=== PATIENT | male | born 1960 | race Caucasian/White ===

== ENCOUNTER 2019-07-27 06:56 | Day surgery (SDC) | payer BC, OTHER ==
[~2019-07-27 06:56] MED LIST: Bupivacaine 0.5% 30 ML SDV ONE; Lidocaine 1% 30 ML SDV ONE
[2019-07-27] MEDS ORDERED: Ondansetron 4 MG/2 ML SDV IV ONE (06:57)
[2019-07-27] MEDS ORDERED: Ketorolac 30 MG/ML SDV IVPUSH ONE (06:57)
[2019-07-27] MEDS ORDERED: Midazolam 1 MG/ML 2 ML SDV IV ONE (06:57)
[2019-07-27] MEDS ORDERED: fentaNYL 100 MCG/2 ML SDV IV ONE (06:57)
[2019-07-27] MEDS ORDERED: Glycopyrrolate 0.2 MG/ML 2 ML SDV IV ONE (06:57)
[2019-07-27] MEDS ORDERED: Bupivacaine 0.5% 30 ML SDV ONE ×2 (06:57→11:18)
[2019-07-27] MEDS ORDERED: Lidocaine 1% 30 ML SDV ONE ×2 (06:57→11:18)
[2019-07-27] MEDS ORDERED: Lactated Ringers 1,000 ML IV ONE (06:57)
[2019-07-27] MEDS ORDERED: Propofol 200 MG/20 ML SDV IV ONE (06:57)
[2019-07-27] MEDS ORDERED: Lactated Ringers 1,000 ML IV SCH (08:30)
[2019-07-27] MEDS ORDERED: Clindamycin Phosphate 600 MG in Sodium Chloride 0.9% 100 ML IV ONE ×2 (08:30→12:00)
[2019-07-27] MEDS ORDERED: Sodium Chloride 0.9% 10 ML Syringe FLUSH PRN ×2 (08:30)
[2019-07-27] MEDS ORDERED: Bupivacaine 0.5% 30 ML SDV INJECT ONE ×2 (12:13→13:45)
[2019-07-27] MEDS ORDERED: Lidocaine 1% 30 ML SDV INJECT ONE ×2 (12:13→13:45)
[2019-07-28 08:12] VITALS: BP 118/71; PULSE 68
--- NOTE | 2019-07-28 09:13 | PCM.OPNOTE ---
- General Post-Op/Procedure Note Date of Surgery/Procedure: 07/27/19 Operative Procedure(s): right ankle arthroscopy with bone spur debridement, right foot endoscopic plantar fasciotomy Pre Op Diagnosis: right ankle pain with bone spur, right foot plantar fasciitis Post-Op Diagnosis: christiano with right ankle joint arthritis Anesthesia Technique: General LMA Primary Surgeon: Divya Desai Anesthesia Provider: Viet Aguilar EBL in mLs: 5 Complications: none Condition: Good Free Text/Narrative:: Intake & Output 07/27/19 07/28/19 07/28/19 22:59 06:59 14:59 Intake Total 600 Balance 600
--- NOTE | 2019-07-28 10:38 | OR ---
DATE: 07/27/2019 PREOPERATIVE DIAGNOSES: 1. Right ankle pain with dorsal bone spur. 2. Right foot plantar fasciitis. POSTOPERATIVE DIAGNOSES: 1. Right ankle pain with dorsal bone spur. 2. Right foot plantar fasciitis with right ankle arthritis. PROCEDURES PERFORMED: 1. Right ankle arthroscopy with bone spur debridement. 2. Right foot endoscopic plantar fasciotomy. ANESTHESIA: General with preoperative local block of 10 mL 1:1 mixture of 1% lidocaine plain and 0.5% Marcaine plain. TOURNIQUET TIME: 84 minutes, pneumatic thigh tourniquet. ESTIMATED BLOOD LOSS: Minimal. SPECIMEN: None. COMPLICATIONS: None. INDICATIONS: Og is a 58-year-old male who presents with chronic right ankle and heel pain. I have done injections to both areas in the past. He states that the ankle injection did help for little bit, but the heel injection only helped for a couple of days. He also does stretching and physical therapy exercises with no relief. He does wear a good shoe with an insert at all times. He states that he did injure that right ankle back in high school, states that he broke the ankle at that time and just iced it until it got better. X-rays of the right foot reveals a bone spur at the dorsal aspect of the right ankle joint. There is a large posterior os trigonum at the ankle. No signs of fractures. The patient voiced good understanding of proposed procedure and possible complications and elects to have surgery at this time. DESCRIPTION OF PROCEDURE: The patient was taken to the operating room lying in supine position. After adequate anesthesia induction as described above, the right foot and ankle were prepped and draped in usual sterile fashion. A pneumatic thigh tourniquet was inflated to 250 mmHg. Attention was then directed to the right ankle dorsal aspect where the dorsal lateral cutaneous nerve was able to be palpated and marked out. A small stab incision was first made at the dorsal ankle joint just medial to the anterior tibial tendon course being careful to avoid the saphenous neurovascular bundle. A 2.7 ankle scope was inserted to the ankle joint at this time. 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 There was a large bone spurring at the dorsal aspect of the tibia and talus. The gutters appeared with chondromalacia as well. There was a significant amount of synovitis throughout the dorsal ankle and also into the medial and lateral gutters. No osteochondral defects were noted. Attention was directed to the lateral ankle where the ankle scope was used to transilluminate the skin to be careful to avoid that nerve. A small stab incision was made at the lateral ankle just lateral to the extensor tendons and a hemostat was used to enter the ankle joint. The debrider was placed into the joint and all the inflamed synovitis tissue was debrided from the ankle joint. The shaver was then used to debride the large bone spurring on the dorsal aspect of the ankle and I also was able to introduce a bone rasp into the ankle through the ankle scope and was able to visualize the bone spur and I did rasp it down this way as well. Fluoroscopy was used to verify adequate resection of the bone spur as well as direct visualization of it. The scope and debrider were then removed, and the area was irrigated. The ankle was sutured with 4-0 nylon. Attention was then directed to the medial heel where a small stab incision was made at the medial plantar aspect taking access to the plantar fascia band. The scope from the endoscopic plantar fascia set was placed into the heel all the way over to the lateral aspect and a small stab incision was made at that lateral aspects so the scope was completely through the bottom of the heel. The ankle scope was then used to visualize the plantar fascia band. A push blade was used to incise the medial aspect of the plantar fascia band until muscle was visualized underneath. I did palpate the area and the tightness of the plantar fascia band was resolved after the release of the ligament. The area was then irrigated with copious amounts of sterile saline. The skin was closed with 4-0 nylon. The patient tolerated the procedure well and was transported to Recovery with vascular status intact as noted by immediate hyperemia upon deflation of the thigh tourniquet. The area was dressed with Xeroform to the incision sites, fluffs, Webril, and an Jaden wrap. He was placed into a CAM boot. He was then discharged home once he met hospital discharge requirements. [facility] /[id number]
== END 2019-07-27 16:37 | disposition home or self-care (01) ==
LOC: DL.SDS 06:56
PROVIDERS: ATTEND Podiatrist
DX: M77.51 Other enthesopathy of right foot and ankle (principal); M72.2 Plantar fascial fibromatosis; M19.071 Primary osteoarthritis, right ankle and foot; K21.9 Gastro-esophageal reflux disease without esophagitis; G47.33 Obstructive sleep apnea (adult) (pediatric); E78.5 Hyperlipidemia, unspecified; Z79.899 Other long term (current) drug therapy; Z88.0 Allergy status to penicillin; Z88.8 Allergy status to other drugs, medicaments and biological substances
CPT/HCPCS: 29893; 29897; J1885; J2001; J2250; J2405; J2704; J3010; J3490; J7050; J7120

== ENCOUNTER 2021-01-07 05:29 | Day surgery (SDC) | payer OTHER ==
[~2021-01-07 05:29] MED LIST changes: -Bupivacaine 0.5% 30 ML SDV ONE; -Lidocaine 1% 30 ML SDV ONE; +Midazolam 1 MG/ML 2 ML SDV ONE; +fentaNYL 100 MCG/2 ML SDV ONE
[2021-01-07] MEDS ORDERED: Midazolam 1 MG/ML 2 ML SDV IV ONE ×3 (05:30→06:35)
[2021-01-07] MEDS ORDERED: fentaNYL 100 MCG/2 ML SDV IV ONE ×3 (05:30→06:34)
[2021-01-07] MEDS ORDERED: Sodium Chloride 0.9% 10 ML Syringe FLUSH PRN (06:00)
[2021-01-07] MEDS ORDERED: Dextrose 5%-0.45% NaCl 1,000 ML IV SCH (06:00)
--- NOTE | 2021-01-07 07:38 | OR ---
DATE: 01/07/2021 PROCEDURE: Esophagogastroduodenoscopy and multiple pinch biopsies. INSTRUMENT USED: GIF-HQ190 Olympus video panendoscope. PREMEDICATIONS: No oral or topical anesthesia used. Fentanyl 100 mcg intravenous, Versed 2 mg intravenous, nasal O2 cannula. The procedure was done under pulse oximetry, BP recording, and pvc monitor. INDICATION: The patient with persistent abdominal pain and bloating, unexplained and not responsive to medical measures. Esophagogastroduodenoscopy is performed for detection of any active erosive lesions, Spaulding esophagus and/or malignancy also under consideration, H pylori status to be determined, small bowel biopsies to be obtained for celiac disease if indicated, endoscopic hemostasis therapy if needed. DESCRIPTION OF PROCEDURE: The scope was passed with ease. Adequate visualization of the esophagus was made from proximal to distal areas. No upper esophageal lesions identified. No distal esophageal stricture. No uphill or downhill esophageal varices. No Marissa-Reddy tear. Grade B erosive changes were noted by [place] criteria. No esophageal polyp or tumor mass identified. Z-line was seen at around 39 cm distal to the oral verge. No proximal gastric varices noted. Gastric fundus examination by retroflexion showed no polypoid lesions. No gastric ulcer, malignant mass, or vascular ectasia identified. Duodenal bulb showed patchy erythema. Visualized second part of the duodenum is unremarkable. Multiple pinch biopsies, 4 in number, were taken from different areas of the second part of duodenum and tissues were also obtained from the bulb at 9 and 12 o'clock positions and sent for any histopathologic evidence of celiac disease. Multiple pinch biopsies were also obtained from the gastric antrum and proximal body and sent for pyloric test for H pylori and histopathology. No bleeding was noted from any of the visualized areas at the completion of examination. Photographs were taken of the duodenal bulb, gastric antrum, fundus, and distal esophagus. IMPRESSION: Grade D gastroesophageal reflux disease. The patient tolerated the procedure well. [facility] /[id number]
[2021-01-07 09:51] VITALS: BP 121/70; PULSE 59
== END 2021-01-07 09:26 | disposition home or self-care (01) ==
LOC: DL.ENDO 05:29
PROVIDERS: ATTEND Internal Medicine Gastroenterology
DX: K29.80 Duodenitis without bleeding (principal); K31.89 Other diseases of stomach and duodenum; K21.9 Gastro-esophageal reflux disease without esophagitis; E66.09 Other obesity due to excess calories; E78.5 Hyperlipidemia, unspecified; G47.30 Sleep apnea, unspecified; N52.9 Male erectile dysfunction, unspecified; I10 Essential (primary) hypertension; Z98.890 Other specified postprocedural states; Z88.0 Allergy status to penicillin; Z88.8 Allergy status to other drugs, medicaments and biological substances; Z68.38 Body mass index [BMI] 38.0-38.9, adult
CPT/HCPCS: 87077; J2250; J3010; J7042

== ENCOUNTER 2021-03-18 06:32 | Day surgery (SDC) | payer OTHER ==
[~2021-03-18 06:32] MED LIST changes: +Dextrose 5%-0.45% NaCl 1,000 ML IV SCH; +Sodium Chloride 0.9% 10 ML Syringe FLUSH PRN
[2021-03-18] MEDS ORDERED: fentaNYL 100 MCG/2 ML SDV IV ONE ×3 (06:33→07:44)
[2021-03-18] MEDS ORDERED: Midazolam 1 MG/ML 2 ML SDV IV ONE ×3 (06:33→07:45)
[2021-03-18 10:26] VITALS: BP 106/68; PULSE 43
--- NOTE | 2021-03-18 14:20 | OR ---
DATE: 03/18/2021 PROCEDURE: Esophagogastroduodenoscopy and multiple punch biopsies. INSTRUMENT USED: GIF-HQ190 Olympus video panendoscope. PREMEDICATIONS: No oral or topical anesthesia used. Fentanyl 100 mcg intravenous, Versed 2 mg intravenous, nasal O2 cannula. The procedure was done under pulse oximetry, BP recording, and computer numerical control programmer. INDICATION: The patient with previous esophageal ulcers, on PPI. Followup esophagogastroduodenoscopy is performed for detection of any persistent esophageal ulcers, for detection of Spaulding's esophagus and/or dysplasia as well as malignancy, endoscopic hemostasis therapy if needed. DESCRIPTION OF PROCEDURE: The scope was passed with ease. Adequate visualization of the esophagus was made from proximal to distal areas. No upper esophageal lesions identified. No distal esophageal stricture. No uphill or downhill esophageal varices. No Marissa-Reddy tear. No evidence of erosive esophagitis by [place] criteria. No esophageal polyp or tumor mass identified. Z-line was seen at around 39 cm distal to the oral verge. No proximal gastric varices noted. Gastric fundus examination by retroflexion showed no polypoid lesions. No gastric ulcer, malignant mass, or vascular ectasia identified. Duodenal bulb showed no ulcer. Visualized second part of duodenum was unremarkable. No bleeding was noted from any of the visualized areas at the completion of the examination. Photographs were taken of the duodenal bulb, gastric antrum, fundus, and distal esophagus. IMPRESSION: Normal study. The patient tolerated the procedure well. [facility] /[id number]
== END 2021-03-18 09:56 | disposition home or self-care (01) ==
LOC: DL.ENDO 06:32
PROVIDERS: ATTEND Internal Medicine Gastroenterology
DX: K22.10 Ulcer of esophagus without bleeding (principal); K21.9 Gastro-esophageal reflux disease without esophagitis; E66.09 Other obesity due to excess calories; I10 Essential (primary) hypertension; N28.1 Cyst of kidney, acquired; Z86.010 Personal history of colon polyps
CPT/HCPCS: 43235; J2250; J3010; J7042

== ENCOUNTER 2021-05-12 05:50 | Day surgery (SDC) | payer OTHER ==
[2021-05-12] MEDS ORDERED: Midazolam 1 MG/ML 2 ML SDV IV ONE ×7 (05:51→07:12)
[2021-05-12] MEDS ORDERED: fentaNYL 100 MCG/2 ML SDV IV ONE ×3 (05:51→07:05)
--- NOTE | 2021-05-12 08:08 | OR ---
DATE: 05/12/2021 PROCEDURE: Total colonoscopy. INSTRUMENT USED: PCF-H190DL Olympus video colonoscope. PREMEDICATIONS: Fentanyl 100 mcg intravenous, Versed 4 mg intravenous. Nasal O2 cannula. Procedure was done under pulse oximetry, BP recording, and potline monitor. INDICATION: The patient with previous colonic tubular adenoma. Surveillance colonoscopic examination is done for detection of any polypoid lesions and removal, endoscopic hemostasis therapy if needed. DESCRIPTION OF PROCEDURE: Initial rectal exam was unremarkable. Rigid anoscopy was normal. The colonoscope was passed with ease. Few diverticula in the distal left colon. The scope was passed with ease up to the ileocecal area. Photographs were taken of the normal-appearing cecum, identified by landmarks of appendiceal orifice and double-bulged ileocecal folds. No bleeding was noted from any of the visualized areas at the commencement of the examination. The bowel preparation was found to be adequate, Sunbright scale 3 in all the regions, total score 9. No stricture. No vascular ectasia. No large isolated ulcerations seen. No evidence of diffuse inflammatory bowel disease in the form of friability, contact bleeding, or ulcerations. No polyp or tumor mass identified. Probing the proximal sides of folds and flexures using adequate distention and clearing up the stool material, withdrawal of the scope was made, cecum to rectum time over 6 minutes. No bleeding was noted from any of the visualized areas at the conclusion of examination. IMPRESSION: Diverticulosis. The patient tolerated the procedure well. [facility] /[id number]
[2021-05-12 09:55] VITALS: BP 123/73; PULSE 48
== END 2021-05-12 09:25 | disposition home or self-care (01) ==
LOC: DL.ENDO 05:50
PROVIDERS: ATTEND Internal Medicine Gastroenterology
DX: Z12.11 Encounter for screening for malignant neoplasm of colon (principal); K57.30 Diverticulosis of large intestine without perforation or abscess without bleeding; K21.9 Gastro-esophageal reflux disease without esophagitis; E66.09 Other obesity due to excess calories; I10 Essential (primary) hypertension; N28.1 Cyst of kidney, acquired; Z86.010 Personal history of colon polyps; Z68.32 Body mass index [BMI] 32.0-32.9, adult
CPT/HCPCS: 45378; J2250; J3010; J7042